=== PATIENT | male | born 1965 | race Caucasian/White ===

== ENCOUNTER 2017-07-07 13:54 | Outpatient (CLI) | payer BC ==
[2017-07-07 14:28] LABS: Blood Urea Nitrogen 10 mg/dL (9-20)
--- NOTE | 2017-07-07 16:14 | Cat Scan Report ---
FINAL REPORT PROCEDURE: CT ANGIO CHEST TECHNIQUE: Computerized tomographic angiography of the chest was performed before and after the IV injection of iodinated nonionic contrast including image processing. The image data was postprocessed using 2-dimensional multiplanar reformatted (MPR) and 3-dimensional (MIP and/or volume rendered) techniques. DL P 1253.06 mGy-cm. HISTORY: R06.02. Shortness of breath. Hypoxia. Colon cancer. COMPARISON: No prior studies are available for comparison. FINDINGS: Heart and pericardium: Normal. Thoracic aorta: Ascending aorta 3.7 cm. Pulmonary vasculature: No obvious filling defect seen in the pulmonary artery branches. Conglomerate adenopathy surrounds right upper and left lower lobe pulmonary artery branches causing narrowing/attenuation. Low-attenuation adjacent right upper lobe pulmonary artery branch (image 66 series 3). Lymph nodes: Moderately enlarged mediastinal adenopathy. Enlarged prevascular/left peribronchial lymph node measures 23 x 17 mm (image 76 series 3). Enlarged subcarinal lymph node measures 23 x 12 mm (image 104 series 3). There is moderate bilateral masslike hilar adenopathy, right greater than left. This surrounds and narrows segmental right upper lobe pulmonary branches. Lungs: Solid-appearing pulmonary nodules of varying size throughout the lungs. These are more evident in a peripheral distribution. Right middle lobe volume loss and possible mild traction bronchiectasis. Mild right lower lobe airspace disease. Mild narrowing/nodularity of the proximal bronchus to the right middle lobe (image 108 series 2). Pleural space: Small right pleural effusion/thickening. Moderate irregular thickening of the right fissure. Musculoskeletal structures: Small multilevel Schmorl's nodes.. Upper abdominal structures: Pre cardiac lymph node measuring up to 19 x 10 mm. Hepatomegaly with low-attenuation of the liver and diffuse heterogeneous attenuation of the liver. Mesenteric stranding. Elevation of the right diaphragm. IMPRESSION: No CT evidence of pulmonary embolism. There is narrowing and attenuation of right upper and left lower lobe pulmonary artery branches due to surrounding mass effect from surrounding adenopathy. Low-attenuation adjacent to the right upper lobe pulmonary artery branch felt to most likely represent pulmonary nodule rather than small embolism. Extensive metastatic pulmonary nodules, mediastinal adenopathy, with small right pleural effusion/nodular pleural thickening. Narrowing and mild irregularity of the proximal right middle lobe bronchus. Probable involvement of the liver. The liver is diffusely enlarged and heterogeneous in attenuation, concerning for metastatic disease. Enlarged prevascular lymph nodes. Consider dedicated abdominal imaging. Mild aneurysmal dilation of the ascending aorta.
== END 2017-07-07 13:55 | disposition home or self-care (01) ==
LOC: CT 13:54
PROVIDERS: ATTEND Internal Medicine Hematology
DX: C18.4 Malignant neoplasm of transverse colon (principal); J90 Pleural effusion, not elsewhere classified; I77.819 Aortic ectasia, unspecified site; J98.6 Disorders of diaphragm; R06.02 Shortness of breath; R59.9 Enlarged lymph nodes, unspecified; R91.8 Other nonspecific abnormal finding of lung field; R16.0 Hepatomegaly, not elsewhere classified; I10 Essential (primary) hypertension
CPT/HCPCS: 36415; 71275; 82565; 84520; Q9967

== ENCOUNTER 2017-07-08 08:15 | Day surgery (SDC) | payer BC ==
[~2017-07-08 08:15] MED LIST: NACL ONE
[2017-07-08 09:21] LABS: Basophils # (Auto) 0.2 K/mm3 (0.0-0.1); Basophils % (Auto) 1.2 % (0.0-1.8); Eosinophils # (Auto) 1.4 K/mm3 (0.0-0.4); Eosinophils % (Auto) 8.9 % (0.0-4.3); Hematocrit 42.9 % (35.5-45.6); Lymphocytes # (Auto) 1.2 K/mm3 (1.2-5.4); Lymphocytes % (Auto) 7.7 % (13.4-35.0); Mean Corpuscular HGB Conc 33 % (32-34); Mean Corpuscular Hemoglobin 27 pg (28-32); Mean Corpuscular Volume 84 fl (84-94); Monocytes # (Auto) 1.4 K/mm3 (0.0-0.8); Monocytes % (Auto) 8.8 % (0.0-7.3); Platelet Count 418 K/mm3 (140-440); Red Blood Count 5.09 M/mm3 (3.65-5.03); Red Cell Distribution Width 18.8 % (13.2-15.2)
[2017-07-08 09:48] LABS: INR 1.2 (0.87-1.13)
[2017-07-08 09:49] LABS: Partial Thromboplastin Time 31.4 Sec. (24.2-36.6)
[2017-07-08] MEDS ORDERED: VERSED IV ONE (11:00)
[2017-07-08] MEDS ORDERED: SUBLIMAZE IV ONE (11:00)
[2017-07-08] MEDS ORDERED: NACL 0.9% 500 ML 0 ML ONE (12:07)
--- NOTE | 2017-07-08 14:09 | Cat Scan Report ---
CT BIOPSY LIVER History: Colon cancer, liver masses. Description of procedure: Informed consent was obtained. Sterile technique was utilized. Moderate sedation was accomplished with Versed and fentanyl. Independent cardiorespiratory monitoring by RN. The patient was sedated for 20 minutes. Intra-observer time of [address] guidance, a 17-gauge introducer needle was advanced to the central portions of an approximate 3 x 5 cm right hepatic lobe hypodense mass. There was immediate return of necrotic appearing yellow fluid. 5 separate 18-gauge core biopsies were obtained for pathology. The pathology was present to evaluate the sample. No complications. Impression: Successful CT-guided biopsy of a right hepatic lobe mass.
[2017-07-08] MEDS ORDERED: NORCO 5/325 PO ONE (14:29)
[2017-07-08 17:03] VITALS: BP 106/73
== END 2017-07-08 16:50 | disposition home or self-care (01) ==
LOC: CATHLABREC 08:15 → CT 08:15 → CATHLABREC 16:50
PROVIDERS: ATTEND Internal Medicine Hematology
DX: C78.7 Secondary malignant neoplasm of liver and intrahepatic bile duct (principal); C19 Malignant neoplasm of rectosigmoid junction
CPT/HCPCS: 36415; 47000; 77012; 85025; 85610; 85730; 88305; 88333; 88334; 88341; 88342; 99156; J2250; J3010; 88307; J7040

== ENCOUNTER 2017-07-10 17:22 | Emergency (ER) | payer BC ==
[2017-07-10 18:08] LABS: Basophils # (Auto) 0.2 K/mm3 (0.0-0.1); Basophils % (Auto) 0.9 % (0.0-1.8); Eosinophils # (Auto) 1.4 K/mm3 (0.0-0.4); Eosinophils % (Auto) 7.9 % (0.0-4.3); Hematocrit 43.8 % (35.5-45.6); Hemoglobin 13.9 gm/dl (11.8-15.2); Lymphocytes # (Auto) 1.9 K/mm3 (1.2-5.4); Lymphocytes % (Auto) 10.4 % (13.4-35.0); Mean Corpuscular HGB Conc 32 % (32-34); Mean Corpuscular Hemoglobin 27 pg (28-32); Mean Corpuscular Volume 86 fl (84-94); Monocytes # (Auto) 1.4 K/mm3 (0.0-0.8); Monocytes % (Auto) 7.8 % (0.0-7.3); Platelet Count 434 K/mm3 (140-440); Red Blood Count 5.12 M/mm3 (3.65-5.03); Red Cell Distribution Width 19.2 % (13.2-15.2)
[2017-07-10 18:22] LABS: INR 1.18 (0.87-1.13)
[2017-07-10 18:23] LABS: Partial Thromboplastin Time 31.8 Sec. (24.2-36.6)
[2017-07-10 18:28] LABS: Alanine Aminotransferase 43 units/L (7-56); BUN/Creatinine Ratio 16; Blood Urea Nitrogen 11 mg/dL (9-20); Calcium 9.9 mg/dL (8.4-10.2); Hemolysis Index 2; Lipase 11 units/L (13-60)
[2017-07-11 01:36] VITALS: BP 110/74
[2017-07-11 02:23] LABS: Hematocrit 43.2 % (35.5-45.6); Hemoglobin 14.2 gm/dl (11.8-15.2); Mean Corpuscular HGB Conc 33 % (32-34); Mean Corpuscular Hemoglobin 28 pg (28-32); Mean Corpuscular Volume 85 fl (84-94); Platelet Count 401 K/mm3 (140-440); Red Blood Count 5.08 M/mm3 (3.65-5.03); Red Cell Distribution Width 19.3 % (13.2-15.2)
[2017-07-11 02:32] LABS: Alanine Aminotransferase 40 units/L (7-56); Albumin 2.7 g/dL (3.9-5); BUN/Creatinine Ratio 15; Bilirubin,Direct 2.4 mg/dL (0-0.2); Blood Urea Nitrogen 12 mg/dL (9-20); Calcium 9.8 mg/dL (8.4-10.2); Hemolysis Index 4; INR 1.29 (0.87-1.13)
--- NOTE | 2017-07-11 05:54 | Emergency Department Report ---
ED Abdominal Pain HPI - General Chief Complaint: Abdominal Pain Stated Complaint: DRIANING FROM BIOPSEY SITE Time Seen by Provider: 07/11/17 04:22 Source: patient, family Mode of arrival: Ambulatory Limitations: Language Barrier - History of Present Illness Initial Comments: 51 YO MALE WITH H/O LIVER BIOPSY DONE YESTERDAY AT [facility], HERE WITH C/O LEAKING FORM THE BIOPSY SITE. HE HAS H/O COLON CANCER WITH POSSIBLE METASTATIC DISEASE TO THE LIVER. HE HAS NO ABDOMINAL PAIN AT THIS TIME, NO FEBRILE , NO V/N. MD Complaint: other (ASCITES LEAKING FROM ABDOMEN) -: Gradual, days(s) (1) Location: R flank Radiation: none Severity scale (0 -10): 0 Associated Symptoms: denies other symptoms - Related Data Home Medications Medication Instructions Recorded Confirmed Last Taken Nebivolol HCl [Bystolic] 10 mg PO DAILY 07/08/17 07/08/17 07/07/17 10mg amLODIPine [Norvasc] 2.5 mg PO DAILY 07/08/17 07/08/17 07/07/17 2.5mg Allergies Allergy/AdvReac Type Severity Reaction Status Date / Time No Known Allergies Allergy Verified 04/25/16 04:06 ED Review of Systems ROS: Stated complaint: DRIANING FROM BIOPSEY SITE Other details as noted in HPI Constitutional: denies: chills, fever Eyes: denies: eye pain, eye discharge, vision change ENT: denies: ear pain, throat pain Respiratory: denies: cough, shortness of breath, wheezing Cardiovascular: denies: chest pain, palpitations Endocrine: no symptoms reported Gastrointestinal: denies: abdominal pain, nausea, diarrhea Genitourinary: denies: urgency, dysuria Musculoskeletal: denies: back pain, joint swelling, arthralgia Skin: denies: rash, lesions Neurological: denies: headache, weakness, paresthesias Psychiatric: denies: anxiety, depression Hematological/Lymphatic: denies: easy bleeding, easy bruising ED Past Medical Hx - Past Medical History Previous Medical History?: Yes Hx Hypertension: Yes Hx Liver Disease: Yes (CA per patient in liver) Hx of Cancer: Yes Additional medical history: LIVER BIOPSY 07/09/17 - Surgical History Past Surgical History?: No Additional Surgical History: liver biopsy 07/08/17 - Social History Smoking Status: Never Smoker - Medications Home Medications: Home Medications Medication Instructions Recorded Confirmed Last Taken Type Nebivolol HCl [Bystolic] 10 mg PO DAILY 07/08/17 07/08/17 07/07/17 History 10mg amLODIPine [Norvasc] 2.5 mg PO DAILY 07/08/17 07/08/17 07/07/17 History 2.5mg ED Physical Exam - General Limitations: Language Barrier General appearance: alert, in no apparent distress - Head Head exam: Present: atraumatic, other (JAUNDICE, THIN) - Eye Eye exam: Present: normal appearance, EOMI, scleral icterus. Absent: conjunctival injection, periorbital swelling, periorbital tenderness - ENT ENT exam: Present: mucous membranes moist - Neck Neck exam: Present: normal inspection, full ROM - Respiratory Respiratory exam: Present: normal lung sounds bilaterally. Absent: respiratory distress - Cardiovascular Cardiovascular Exam: Present: regular rate, normal rhythm. Absent: systolic murmur, diastolic murmur, rubs, gallop - GI/Abdominal GI/Abdominal exam: Present: soft, normal bowel sounds, other (RIGHT MID FLANK SMALL.5CM INCISION WITH CLEAR FLUID COMING OUT, NO BLOOD, NO PUS, NO SIGNS OGF INFECTION). Absent: distended, tenderness, guarding - Rectal Rectal exam: Present: deferred - Extremities Exam Extremities exam: Present: normal inspection, full ROM - Back Exam Back exam: Present: normal inspection, full ROM. Absent: CVA tenderness (R), CVA tenderness (L) - Neurological Exam Neurological exam: Present: alert, oriented X3, CN II-XII intact - Psychiatric Psychiatric exam: Present: normal affect, normal mood - Skin Skin exam: Present: warm, dry, intact, normal color. Absent: rash ED Course Vital Signs 07/10/17 07/10/17 07/10/17 17:34 18:36 18:46 Temperature 97.3 F L 98.0 F Pulse Rate 94 H 94 H 94 H Respiratory 16 16 Rate Blood Pressure 109/73 106/58 Blood Pressure 106/58 [Left] O2 Sat by Pulse 93 87 91 Oximetry 07/11/17 07/11/17 07/11/17 01:28 01:30 01:37 Temperature 98.0 F Pulse Rate 92 H 89 89 Respiratory 15 19 19 Rate Blood Pressure 116/80 110/74 110/74 Blood Pressure [Left] O2 Sat by Pulse 94 Oximetry 07/11/17 02:20 Temperature Pulse Rate Respiratory 18 Rate Blood Pressure Blood Pressure [Left] O2 Sat by Pulse Oximetry - Laceration /Wound Repair Abdomen Wound Location: abdomen Wound's Depth, Shape: into muscle Wound Explored: clean Wound Repaired With: Steri-strips, Dermabond Sterile Dressing Applied?: Yes ED Medical Decision Making - Lab Data Result diagrams: 07/11/17 01:56 07/11/17 01:56 Critical care attestation.: If time is entered above; I have spent that time in minutes in the direct care of this critically ill patient, excluding procedure time. ED Disposition Clinical Impression: Ascites of liver, Wound dehiscence Disposition: - TO HOME OR SELFCARE Is pt being admited?: No Does the pt Need Aspirin: No Condition: Stable Instructions: Ascites (ED), Wound Dehiscence (ED) Additional Instructions: PLEASE CALL THE DOCTOR THAT DID YOUR BIOPSY TO LET HIM KNOW THAT YOU HAD A LEAK AT THE BIOPSY SITE. RETURN TO ER IF YOU HAVE FEVER, ABDOMINAL PAIN, TENDERNESS, NAUSEA, VOMITING OR FOR ANY CONCERNS Referrals: DALIA BANEGAS MD [Primary Care Provider] - 3-5 Days Time of Disposition: 05:57
== END 2017-07-11 06:40 | disposition home or self-care (01) ==
LOC: ED 17:22
DX: T81.30XA Disruption of wound, unspecified, initial encounter (principal); R18.8 Other ascites; I10 Essential (primary) hypertension; Z85.038 Personal history of other malignant neoplasm of large intestine; Z98.890 Other specified postprocedural states
CPT/HCPCS: 36415; 80048; 80053; 80074; 83690; 85025; 85027; 85610; 85730

== ENCOUNTER 2017-07-20 13:33 | Outpatient (CLI) | payer BC ==
[2017-07-20 14:16] LABS: Blood Urea Nitrogen 20 mg/dL (9-20)
--- NOTE | 2017-07-20 15:50 | Magnetic Resonance Report ---
MRI BRAIN WITH AND WITHOUT CONTRAST INDICATION: Metastatic lesion, colon cancer. COMPARISON: None similar. FINDINGS: Multiplanar and multisequence MRI of the brain performed utilizing 15 mL MultiHance intravenously and demonstrates approximately 8 mm enhancing peripheral right cerebellar lesion posteriorly, axial series 11, image 9 arising off/along the undersurface of the tentorium, coronal series 10, image 5. Otherwise unremarkable posterior fossa with preserved basilar cisterns and symmetric seventh and eighth nerve complexes. Normal eye globes. Normal ventricles. Slight bifrontal sulcal enlargement. No acute infarct, hemorrhage, mass effect or midline shift. No abnormal extra-axial fluid collections. Approximately 5 mm rightward nasal septal spur. Clear imaged paranasal sinuses and mastoid air cells. Normal midline structures without evidence of Chiari malformation. CONCLUSION: 1. Approximately 8mm enhancing right cerebellar lesion posteriorly close to or arising off the tentorium. No associated edema or significant FLAIR or T2-weighted signal abnormality noted. Though primarily concerning for metastasis in the given setting, other possibilities as meningioma not entirely excluded based on this exam alone. Please also correlate clinically, with prior relevant imaging if available, and on future CT or MRI exams, as appropriate. 2. Few other findings, as above. Thank you for the opportunity to participate in this patient's care.
== END 2017-07-20 13:34 | disposition home or self-care (01) ==
LOC: MRI 13:33
PROVIDERS: ATTEND Internal Medicine Hematology
DX: C18.4 Malignant neoplasm of transverse colon (principal); G93.89 Other specified disorders of brain; I10 Essential (primary) hypertension
CPT/HCPCS: 36415; 70553; 82565; 84520; A9577

== ENCOUNTER 2017-10-28 14:13 | Outpatient (CLI) | payer BC ==
[2017-10-28 15:06] LABS: Blood Urea Nitrogen 14 mg/dL (9-20)
--- NOTE | 2017-10-29 08:16 | Magnetic Resonance Report ---
MRI BRAIN WITHOUT AND WITH CONTRAST: 10/28/17 14:23:00 CLINICAL: Metastatic colon cancer. Followup brain metastasis. COMPARISON: 07/20/17 TECHNIQUE: Axial diffusion, T1, FLAIR, gradient echo T2*, and coronal and axial T2 and sagittal T1 plus coronal and axial postcontrast T1 sequences on a 1.5 Yudy magnet. 15.0 cc of Multihance was injected intravenously for the contrast portion of the exam. Consent was obtained prior to the administration of contrast. FINDINGS: No mass or enhancing lesion. The previously described right cerebellar 8mm enhancing lesion has resolved. The ventricles are normal size. Stable mild frontotemporal sulcal enlargement. No restricted diffusion. No abnormal signal. No hemorrhage, edema or extra-axial collection. Normal pituitary and optic chiasm. The brainstem and cerebellum are normal. Intact vascular flow voids. The orbits, sinuses and soft tissues are normal. Normal calvarium and skull base. IMPRESSION: 1. Resolution of a right cerebellar enhancing lesion and no evidence of metastasis. 2. Mild frontotemporal cortical atrophy.
== END 2017-10-28 14:14 | disposition home or self-care (01) ==
LOC: MRI 14:13
PROVIDERS: ATTEND Internal Medicine Hematology
DX: C18.4 Malignant neoplasm of transverse colon (principal); G31.01 Pick's disease; F02.80 Dementia in other diseases classified elsewhere, unspecified severity, without behavioral disturbance, psychotic disturbance, mood disturbance, and anxiety
CPT/HCPCS: 36415; 70553; 82565; 84520; A9577